=== PATIENT | female | born 1995 | race Caucasian/White ===

== ENCOUNTER 2016-05-05 13:55 | Outpatient (CLI) | payer BC ==
[~2016-05-05] VITALS: Ht 162.6 cm; Wt 76.4 kg
[2016-05-05 14:17] VITALS: BP 113/71; PULSE 72; RESP 16; Ht 162.6 cm; Wt 76.4 kg
--- NOTE | 2016-05-05 16:43 | PN ---
Date/Time of Note Date/Time of Note DATE: 05/05/16 TIME: 16:35 Assessment/Plan Assessment/Plan Assessment/Plan [facility] Progress Note Date of Service: 05/05/16 Today's Impression & Plan: Overall doing well post op without major issues. No major wound problems. With above assessment, I've recommended the following for today: 1. F/u with PCP 2. F/u with us prn Thank you again for your great care of this very pleasant patient and wonderful family. If there are any questions, please feel free to call me at [phone]. TOTAL VISIT TIME: 20 minutes of which more than half was spent in [id number] discussion with the patient, possibly including family, as well as coordination of care between multiple physicians and providers. Disclaimer: Inadvertent spelling or grammatical errors are likely due to EHR/ dictation software use and do not reflect on the overall quality of patient care. Updated Clinical Summary: S/p lap appy on 04/26/16 for acute non-perforated appendicitis at [facility]. Comorbidities: 1. BMI 28.9 2. S/p lap appy on 04/26/16 for acute non-perforated appendicitis at [facility]. 3. GERD; on Prilosec 4. S/p Ton & [place] 5. On -control Subjective: No major events or complaints; no abd pain and under control with medications; no n/v/d; no sob or cp; + flatus; + BM and normal; + activity Objective: Vitals: See below Exam: GENERAL: On exam, the patient was sitting in a chair and appeared to be comfortable and in no acute distress. ABDOMEN: Soft, nontender and nondistended. Incisions are clean, dry and intact without any evidence of erythema, edema, discharge, or hernia. There are no peritoneal signs or guarding. SKIN: Skin appears to be pink and feels warm to touch. NEUROLOGIC: Patient is awake, alert, and follows commands appropriately. Exam/Review of Systems Vital Signs Vitals Vital Signs Date Time Temp Pulse Resp B/P Pulse Ox O2 Delivery O2 Flow Rate FiO2 05/05/16 14:17 98.3 72 16 113/71 97 Room Air MADDI ZAMORA M.D. May 05, 2016 16:43
== END 2016-05-05 16:27 | disposition home or self-care (01) ==
LOC: HPC 13:55
PROVIDERS: ATTEND Transplant Surgery
DX: K37 Unspecified appendicitis (principal); K21.9 Gastro-esophageal reflux disease without esophagitis
CPT/HCPCS: G0463